=== PATIENT | female | born 1990 | race Caucasian/White ===

== ENCOUNTER 2024-03-17 04:47 | Inpatient (IN) | payer BC ==
[2024-03-17 05:17] VITALS: BMI 29.9
[2024-03-17 06:09] LABS: Fetal Membranes Rupture RUPTURE DETECTED (No Rupture)
[2024-03-17 07:56] LABS: #Basophils 0.04 10x3/uL (0.0-0.2); #Eosinphils 0.01 10x3/uL (0.0-0.5); #Monocytes 0.65 10x3/uL (0.0-1.1); #Neutrophils 8.26 10x3/uL (1.5-8.4); %Basophils 0.4 % (0.0-2.0); %Eosinophils 0.1 % (0.0-6.0); %Lymphocytes 14.9 % (18.0-47.0); %Monocytes 6.1 % (0.0-10.0); %Neutrophils 78.1 % (40.0-75.0); Hematocrit 32.9 % (34.9-44.5); Hemoglobin 11.7 g/dL (12.0-15.5); Mean Corpuscular HGB CONC 35.6 g/dL (32.0-36.0); Mean Corpuscular Hemoglobin 30.3 pg (27.0-33.0); Mean Corpuscular Volume 85.2 fL (81.6-98.3); Mean Platelet Volume 10.1 fL (7.4-10.4); Platelet Count 231 10x3/uL (150-450); RBC Distribution Width 12.6 % (11.5-14.5); Red Blood Cell (RBC) Count 3.86 10x6/uL (3.90-5.03); White Blood Cell (WBC) Count 10.6 10x3/uL (3.5-10.5)
[2024-03-17 08:12] LABS: ALT (SGPT) 22 U/L (8-55); AST (SGOT) 22 U/L (5-34); Albumin 2.9 g/dL (3.5-5.0); Anion Gap 15 mmol/L (10-20); BUN (Urea Nitrogen) 10 mg/dL (7.0-18.7); Bilirubin, Total 0.5 mg/dL (0.2-1.2); Calc. Creatinine Clearance 139 mL/min (70-130); Calcium 9.4 mg/dL (7.8-10.44); Carbon Dioxide 19 mmol/L (22-29); Chloride 107 mmol/L (98-107); Estimated GFR 117; Globulin 4.1 g/dL (2.4-3.5); Glucose 80 mg/dL (70-105); Sodium 137 mmol/L (136-145)
[2024-03-17 08:44] LABS: Alkaline Phosphatase 232 U/L (40-110)
[2024-03-17] MEDS ORDERED: Lidocaine 1% (PF) 30 ML VIAL SC PRN (12:14)
[2024-03-17] MEDS ORDERED: Methylergonovine 0.2 MG/ML VIAL IM PRN ×2 (12:14→18:06)
[2024-03-17] MEDS ORDERED: Misoprostol 200 MCG TAB PR PRN (12:14)
[2024-03-17] MEDS ORDERED: Carboprost 250 MCG/ML AMP IM PRN (12:14)
[2024-03-17] MEDS ORDERED: Lactated Ringer's 1,000 ML IV PRN (12:14)
[2024-03-17] MEDS ORDERED: HYDROcodone/Acetaminophen 5/325 mg Tablet PO PRN ×4 (12:14→18:06)
[2024-03-17] MEDS ORDERED: hydrALAZINE 20 MG/ML VIAL SLOW IVP PRN ×2 (12:14→18:06)
[2024-03-17] MEDS ORDERED: Ondansetron PF 4 MG/2 ML Vial IVP PRN ×2 (12:14→12:36)
[2024-03-17] MEDS ORDERED: fentaNYL 50 mcg/mL 1 mL Vial SLOW IVP PRN (12:14)
[2024-03-17] MEDS ORDERED: Promethazine HCl 25 MG/ML VIAL IM PRN ×2 (12:14→12:36)
[2024-03-17] MEDS ORDERED: Oxytocin 30 units/NS 500 ML 500 ML IV SCH ×2 (12:15→18:06)
[2024-03-17] MEDS ORDERED: Lactated Ringer's 500 ML IV PRN (12:36)
[2024-03-17] MEDS ORDERED: diphenhydrAMINE 50 MG/ML VIAL IVP PRN (12:36)
[2024-03-17] MEDS ORDERED: Naloxone HCl 0.4 mg/ml Vial IVP PRN ×2 (12:36)
[2024-03-17] MEDS ORDERED: Moisturizing Cream (Eucerin) 113 GM JAR TOP PRN (12:36)
[2024-03-17] MEDS ORDERED: Acetaminophen 325 MG TAB PO PRN (12:36)
[2024-03-17] MEDS ORDERED: ePHEDrine Sulfate 50 MG/10 ML VIAL SLOW IVP PRN (12:36)
[2024-03-17] MEDS ORDERED: fentaNYL 2 mcg/Ropivacaine 0.2% Epidural 100 ML CADD EPIDURAL SCH (12:45)
[2024-03-17] MEDS ORDERED: Communication Order-Pharmacy FS SCH (12:45)
[2024-03-17 13:29] LABS: HBsAg Index 0.19 S/CO (0-0.99); Hep B Surf Ag - L&D Non-Reactive S/CO (NonReactive)
[2024-03-17 13:31] LABS: Syphilis Antibody Nonreactive (Nonreactive); Syphilis Antibody Index 0.06 S/CO (<1.00 Non-Reactive)
[2024-03-17 16:34] LABS: Creatinine, Urine 107.63 mg/dL (47-110)
[2024-03-17] MEDS: Ibuprofen 800 MG TAB PO PRN (17:34)
[2024-03-17] MEDS: fentaNYL/Ropivacaine Epidural 100 ML ONE (17:34)
[2024-03-17] MEDS: Lidocaine 1% (PF) 30 ML VIAL ONE (17:34)
[2024-03-17] MEDS ORDERED: Bisacodyl 10 MG SUPP PR PRN (18:06)
[2024-03-17] MEDS ORDERED: Benzocaine-Menthol 82.5 ML CAN TOP PRN (18:06)
[2024-03-17] MEDS ORDERED: Milk Of Magnesia 30 ML UDCUP PO PRN (18:06)
[2024-03-17] MEDS ORDERED: Misoprostol 200 MCG TAB VAG PRN (18:06)
[2024-03-17] MEDS: Ferrous Sulfate 325 MG TAB PO SCH (18:40)
[2024-03-17] MEDS: Ibuprofen 800 MG TAB PO SCH (21:03)
[2024-03-17] MEDS: Docusate 100 MG CAP PO SCH (21:09)
[2024-03-18] MEDS: Prenatal Vitamin 1 TAB PO SCH (08:57)
[2024-03-18] MEDS ORDERED: Bupivacaine 0.25% HCL 30 ML VIAL ONE (17:00)
[2024-03-19 07:47] VITALS: BP 117/77; TEMP 97.4
[2024-03-19] MEDS: Boostrix 0.5 ML (Tdap) VIAL (>/=7 yrs of age) IM ONE (08:09)
== END 2024-03-19 13:00 | disposition home or self-care (01) | DRG 806 ==
LOC: CSHLD/OP 04:47 → CSHLD 13:12 → CSHPP 18:00
PROVIDERS: ADMIT Obstetrics & Gynecology; ATTEND Obstetrics & Gynecology
PROC: 10E0XZZ Delivery of Products of Conception, External Approach (ICD-10-PCS; principal; 2024-03-17)
PROC: 0UQGXZZ Repair Vagina, External Approach (ICD-10-PCS; 2024-03-17)
PROC: 3E033XZ Introduction of Vasopressor into Peripheral Vein, Percutaneous Approach (ICD-10-PCS; 2024-03-17)
DX: O42.02 Full-term premature rupture of membranes, onset of labor within 24 hours of rupture (principal); O71.4 Obstetric high vaginal laceration alone; Z37.0 Single live birth; O76 Abnormality in fetal heart rate and rhythm complicating labor and delivery; Z3A.37 37 weeks gestation of pregnancy
CPT/HCPCS: 36415; 51702; 76819; 80053; 82570; 84112; 84156; 85025; 86780; 86850; 86900; 86901; 87340; 87480; 87510; 87660; 99285; J0665; J2001; J2590